=== PATIENT | female | born 1975 | race Caucasian/White ===

== ENCOUNTER → 2017-12-11 | Outpatient (CLI) | payer BC ==
--- NOTE | 2017-12-11 08:41 | US ---
EXAMINATION TYPE: US abdomen complete DATE OF EXAM: 12/11/2017 COMPARISON: NONE CLINICAL HISTORY: R74.8 ABN LEVELS OF OTHER SERUM ENZYMES. Patient has RA, and has been on Humira for years. EXAM MEASUREMENTS: Liver Length: 17.9 cm Gallbladder Wall: 0.2 cm CBD: 0.3 cm Spleen: 10.0 cm Right Kidney: 10.1 x 5.2 x 4.7 cm Left Kidney: 11.2 x 4.5 x 4.2 cm Pancreas: Obscured by bowel gas Liver: Partially Obscured by overlying bowel gas . However the visualized hepatic echotexture displ ays hyperechoic echogenicity, most commonly related to hepatic steatosis and limiting evaluation for hepatic masses. Gallbladder: Filled with echogenic, mobile gallstones. Evidence for sonographic Hylton's sign: No CBD: wnl Spleen: wnl Right Kidney: wnl Left Kidney: wnl Upper IVC: wnl Abd Aorta: wnl Sub optimal exam overall due to large patient body habitus and large amounts of bowel gas. The liver is diffusely hyperechoic. The intrahepatic portion of the IVC and proximal abdominal aorta are within normal limits. Common bile duct is unremarkable. Pancreas is obscured. The spleen is unre markable. Kidneys are symmetric and free of hydronephrosis. No renal lesions are seen. IMPRESSION: 1. Cholelithiasis without sonographic evidence of acute cholecystitis. 2. Findings most commonly related to hepatic steatosis.
== END | disposition home or self-care (01) ==
LOC: RADUSWWP 07:06
PROVIDERS: ATTEND Family Medicine
DX: K80.20 Calculus of gallbladder without cholecystitis without obstruction (principal)
CPT/HCPCS: 76700

== ENCOUNTER 2018-05-10 11:48 | Day surgery (SDC) | payer BC ==
[2018-05-07 14:13] VITALS: BMI 50.8
--- NOTE | 2018-05-10 05:28 | P.GSHP ---
History of Present Illness H&P Date: 05/10/18 CHIEF COMPLAINT: Cholecystitis HISTORY OF PRESENT ILLNESS: The patient is a 42-year-old female who presents with history of epigastric including right upper quadrant abdominal pain. She underwent diagnostic studies for her gallbladder. Separately her clinical picture was consistent with cholecystitis. Now she presents for surgical intervention. PAST MEDICAL HISTORY: Please see list PAST SURGICAL HISTORY: Please see list MEDICATIONS: Please see list ALLERGIES: Denies. SOCIAL HISTORY: No illicit drug use or recent tobacco use FAMILY HISTORY: Pertinent for gallbladder disease REVIEW OF ORGAN SYSTEMS: CONSTITUTIONAL: No reports of fevers or chills. HEENT: Denies any troubles with the vision or hearing. ENDOCRINE: No reports of hypothyroidism. No diabetes. RESPIRATORY: No recent pneumonias. CARDIOVASCULAR: Denies chest pain or palpitations GI: No blood in stools or constipation. MUSCULOSKELETAL: Has occasional joint pain including back pain. NEURO: No seizure disorders or headaches. No recent stroke. PSYCH: No depression or suicidal ideation. GENITOURINARY: No active blood in urine. No urinary hesitancy. HEMATOLOGIC: No personal or family history of DVTs or pulmonary emboli. SKIN: No skin cancer. PHYSICAL EXAM: VITAL SIGNS: Afebrile vital signs stable GENERAL: Well-developed pleasant in no acute distress. HEENT: No scleral icterus. Extraocular movements grossly intact. Moist buccal mucosa. NECK: Supple without lymphadenopathy. CHEST: Unlabored respirations. Equal bilateral excursions. CARDIOVASCULAR: Regular rate regular rhythm rhythm. Distal 2+ pulses. ABDOMEN: Soft, nondistended. Tender along the epigastrium and right upper quadrant. MUSCULOSKELETAL: No clubbing, cyanosis, or edema. NEURO: Cranial nerves II to XII within normal limits. No focal or lateralizing signs. PSYCH: Alert and oriented to person, place and time. SKIN: Well-perfused good skin turgor. ASSESSMENT: 1. Epigastric and right upper quadrant abdominal pain 2. Chronic cholecystitis 3. Symptomatic gallstones. PLAN: 1. Will need a robotic cholecystectomy possible open. Benefits and risks were described. 2. Heparin for DVT prophylaxis 5000 units. 3. Antibiotic prophylaxis. Past Medical History Past Medical History: Hypertension, Rheumatoid Arthritis (RA) History of Any Multi-Drug Resistant Organisms: None Reported Past Surgical History: Joint Replacement Additional Past Surgical History / Comment(s): carolin hip, deviated septum sx Past Anesthesia/Blood Transfusion Reactions: Postoperative Nausea & Vomiting ( PONV) Smoking Status: Never smoker - Past Family History Mother Family Medical History: No Reported History Medications and Allergies Home Medications Medication Instructions Recorded Confirmed Type Adalimumab [Humira Pen] 40 mg SQ Q14D 05/07/18 05/07/18 History Furosemide [Lasix] 20 mg PO DAILY 05/07/18 05/07/18 History Allergies Allergy/AdvReac Type Severity Reaction Status Date / Time No Known Allergies Allergy Verified 05/07/18 14:06
[~2018-05-10 11:48] MED LIST: ACETAMINOPHEN IV (For NPO) 1,000 MG in EMPTY BAG 1 BAG IVPB ONE; DEXAMETHASONE SOD PHOSPHATE 10 MG/ML 1 ML VIAL IV ONE; HEPARIN SODIUM,PORCINE 5,000 UNIT/ML 1 ML VIAL SQ ONE; HYDROmorphone 0.5 MG/0.5 ML SYRINGE IVP PRN; INDOCYANINE GREEN 25 MG VIAL IV STA; LACTATED RINGERS 1,000 ML IV SCH; MIDAZOLAM (PF) 2 MG/2 ML VIAL IV PRN; ONDANSETRON 4 MG/2 ML VIAL IVP ONE; SCOPOLAMINE 1.5MG/72HR PATCH TRANSDERM ONE
[2018-05-10] MEDS ORDERED: LIDOCAINE 1% 20 ML VIAL (10MG/ML) FOR IV START INTRADERMA ONE (12:43)
[2018-05-10 13:28] LABS: Basophils % (A) 1 %; Eosinophils # (A) 0.1 k/uL (0-0.7); Eosinophils % (A) 2 %; HCT 40.6 % (34.0-46.0); HGB 13.2 gm/dL (11.4-16.0); Lymphocytes % (A) 32 %; MCH 29.2 pg (25.0-35.0); MCHC 32.5 g/dL (31.0-37.0); MCV 89.9 fL (80.0-100.0); Mean Platelet Volume 8.2; Monocytes # (A) 0.6 k/uL (0-1.0); Monocytes % (A) 10 %; Neutrophils # (A) 3.4 k/uL (1.3-7.7); Neutrophils % (A) 54 %; Platelet Count 238 k/uL (150-450); RBC 4.51 m/uL (3.80-5.40); RDW 14.1 % (11.5-15.5); WBC 6.3 k/uL (3.8-10.6)
[2018-05-10 13:39] LABS: ALT 32 U/L (9-52); AST 30 U/L (14-36); Albumin 3.6 g/dL (3.5-5.0); Alkaline Phosphatase 47 U/L (38-126); Anion Gap 5 mmol/L; Blood Urea Nitrogen 18 mg/dL (7-17); Calcium 8.9 mg/dL (8.4-10.2); Carbon Dioxide 24 mmol/L (22-30); Chloride 112 mmol/L (98-107); Glucose 96 mg/dL (74-99); Potassium 4.6 mmol/L (3.5-5.1); Sodium 141 mmol/L (137-145); Total Bilirubin 1.1 mg/dL (0.2-1.3); Total Protein 6.8 g/dL (6.3-8.2)
[2018-05-10] MEDS ORDERED: GLYCOPYRROLATE 0.2 MG/ML 2 ML VIAL ONE (13:52)
[2018-05-10] MEDS ORDERED: KETOROLAC 30 MG/ML 1 ML VIAL ONE (13:52)
[2018-05-10] MEDS ORDERED: LIDOCAINE 1% INJ 10MG/ML (20 ML MDV) ONE (13:52)
[2018-05-10] MEDS ORDERED: NEOSTIGMINE 1 MG/ML 10 ML VIAL ONE (13:52)
[2018-05-10] MEDS ORDERED: PROPOFOL 10 MG/ML 20 ML VIAL IV ONE (13:52)
[2018-05-10] MEDS ORDERED: INDOCYANINE GREEN 25 MG VIAL IV ONE (13:52)
[2018-05-10] MEDS ORDERED: SUCCINYLCHOLINE CHLORIDE VIAL 200 MG/10 ML VIAL IV ONE (13:52)
[2018-05-10] MEDS ORDERED: fentaNYL (PF) 50 MCG/ML 2 ML AMP ONE (13:52)
[2018-05-10] MEDS ORDERED: MIDAZOLAM 2 MG/2 ML VIAL ONE (13:52)
[2018-05-10] MEDS ORDERED: ROCURONIUM BROMIDE 10 MG/ML 10 ML VIAL IV ONE (13:52)
[2018-05-10] MEDS ORDERED: ACETAMINOPHEN IV (For NPO) 1,000 MG/100 ML VIAL ONE (13:52)
[2018-05-10] MEDS ORDERED: BUPIVACAIN-EPI 0.25%-1:200,000 30 ML VIAL SQ ONE ×2 (14:29→14:56)
[2018-05-10] MEDS ORDERED: LACTATED RINGERS 1,000 ML IV ONE (15:45)
[2018-05-10 15:55] VITALS: TEMP 97.9
--- NOTE | 2018-05-10 16:00 | P.OP ---
Date of Procedure: 05/10/18 Description of Procedure: SURGEON: LUISANA KENYON MD PREOPERATIVE DIAGNOSES: 1. Right upper quadrant abdominal pain 2. Chronic cholecystitis 3. Morbid obesity due to excess calories, BMI 50.9 4. Rheumatoid arthritis 5. Hypertensive heart disease 6. Postop nausea or vomiting POSTOPERATIVE DIAGNOSES: 1. Right upper quadrant abdominal pain 2. Chronic cholecystitis 3. Morbid obesity due to excess calories, BMI 50.9 4. Rheumatoid arthritis 5. Hypertensive heart disease 6. Postop nausea or vomiting 7. Fatty liver disease OPERATION: Robotic-assisted da Juan M Xi laparoscopic cholecystectomy, multiport with FIREFLY ESTIMATED BLOOD LOSS: 5 mL. SPECIMENS REMOVED: Gallbladder. COMPLICATIONS: None. OPERATIVE FINDINGS: 1. Chronic cholecystitis INDICATIONS: The patient is a 42-year-old female who presents with cholelcystitis. Surgical intervention with a laparoscopic cholecystectomy was described at length including injury to the biliary tree, bleeding, infection, need for further surgery. Informed consent was obtained. Robotic assisted laparoscopic approach was described. Benefits and risks of the procedure including but not limited to bleeding, infection, injury to the biliary tree was described. Informed consent was obtained. DESCRIPTION OF PROCEDURE: Patient was brought to the operating room, placed in supine position. After general induction, the abdomen had been prepped and draped in standard sterile fashion. The robotic da Juan M XI system was primed. After a timeout protocol was performed, the patient had been prepped and draped in standard sterile fashion. The patient was injected with indocyanine green. A 5 mm 0 degrees laparoscopic trocar entry was performed along the left upper quadrant. The abdomen insufflated to 15 mmHg pressure which was tolerated well. Diagnostic laparoscopy demonstrated no injury to bowel viscera or mesentery. The liver surface was unremarkable. Next, two 8 mm robotic ports were placed along the right upper abdomen. The camera 8-mm port was maintained along the epigastrium. Another 8 mm port was placed along the left upper abdominal wall after exchanging the 5 mm port. Please note that the ports were placed at least 10 to 15 cm away from the target anatomy of the gallbladder. The robot was docked along the left lateral abdomen. The patient was repositioned in reverse Trendelenburg position. Using a grasper for arm 3, a grasper for arm 4, including hook cautery for arm 1 , the robotic system was docked and primed as described. Instruments were interchanged by the malt specifications control assistant including hook cautery, Bovie cautery and clip appliers. I had sat at the console. The gallbladder fundus was retracted over the dome of the liver. Initial attention was brought to the infundibulum which was gently retracted in the inferior lateral approach. Using a grasper, the cystic duct including the cystic artery was carefully skeletonized. FIREFLY was used to identify the cystic artery and cystic structures. Large PLASTIC clips were used throughout the entire case. Using a clip lottery office manager 2 clips were placed proximally, and 1 clip was placed distally along the cystic duct and then cauterized with the cautery. Again care was taken to avoid any injury to the biliary tree as the common bile duct was clearly visualized during this portion of dissection. Next, the cystic artery was similarly clipped and cauterized. Electro-Bovie cautery was used to remove the gallbladder from the hepatic fossa. Hemostasis was checked and found to be adequate. The robot was undocked. I re-scrubbed into the case. Using a 10 mm Endo Catch bag via the left upper quadrant incision, the specimen was removed from the abdominal cavity. All pneumoperitoneum instruments were evacuated from the abdominal cavity. The incisions were reapproximated using 4-0 Monocryl in an interrupted subcuticular fashion. Fascial defects were less than 8 mm in size. Please note along the trocar sites, local anesthetic was placed as a field block prior to insertion of all instruments. Liquid glue was applied to the skin. At the end of the procedure needle, sponge, and instrument count had been verified correct by the assistant professor surgical technology. The patient was transferred to postanesthesia care unit in stable condition. Intraoperative films were shared with the patient's family who were very pleased with the level of care. Console time 20 minutes Plan - Discharge Summary Discharge Rx Participant: Yes New Discharge Prescriptions: New HYDROcodone/APAP 5-325MG [[place] 5-325] 1 tab PO Q4HR PRN 3 Days #18 tab PRN Reason: Pain Ibuprofen [Motrin] 600 mg PO Q8HR PRN #30 tab PRN Reason: Pain No Action Furosemide [Lasix] 20 mg PO DAILY Adalimumab [Humira Pen] 40 mg SQ Q14D Discharge Medication List Adalimumab [Humira Pen] 40 mg SQ Q14D 05/07/18 [History] Furosemide [Lasix] 20 mg PO DAILY 05/07/18 [History] HYDROcodone/APAP 5-325MG [[place] 5-325] 1 tab PO Q4HR PRN 3 Days #18 tab [Rx] Ibuprofen [Motrin] 600 mg PO Q8HR PRN #30 tab 05/10/18 [Rx] Follow up Appointment(s)/Referral(s): Luisana Kenyon MD [STAFF PHYSICIAN] - 05/22/18 Patient Instructions/Handouts: Laparoscopic Cholecystectomy (IP), Low Fat Diet (DC) Activity/Diet/Wound Care/Special Instructions: No lifting over 4 pounds in 2 weeks. May shower. No baths or soaks. Low-fat diet over the weekend. Discharge Disposition: HOME SELF-CARE
[2018-05-10 16:03] VITALS: RESP 16
[2018-05-10 17:39] VITALS: BP 117/76; PULSE 58
== END 2018-05-10 17:54 | disposition home or self-care (01) ==
LOC: OR 11:48
PROVIDERS: ATTEND Surgery Plastic and Reconstructive Surgery
DX: K80.10 Calculus of gallbladder with chronic cholecystitis without obstruction (principal); E66.01 Morbid (severe) obesity due to excess calories; Z68.43 Body mass index [BMI] 50.0-59.9, adult; M06.9 Rheumatoid arthritis, unspecified; I11.9 Hypertensive heart disease without heart failure; K76.9 Liver disease, unspecified; I10 Essential (primary) hypertension; Z79.899 Other long term (current) drug therapy
CPT/HCPCS: 47562; S2900; 80053; 81025; 85025; 88304

== ENCOUNTER → 2018-09-12 | Outpatient (CLI) | payer BC ==
--- NOTE | 2018-09-12 18:42 | US ---
EXAMINATION TYPE: US venous doppler duplex LE RT DATE OF EXAM: 09/12/2018 3:49 PM COMPARISON: NONE CLINICAL HISTORY: 43-year-old female M79.661 pain in R leg,. Edema and pain right leg for 3 weeks SIDE PERFORMED: right TECHNIQUE: The lower extremity deep venous system is examined utilizing real time linear array sonog thuy with graded compression, doppler sonography and color-flow sonography. FINDINGS: VESSELS IMAGED: External Iliac Vein (EIV) Common Femoral Vein Deep Femoral Vein Greater Saphenous Vein * Femoral Vein Popliteal Vein Small Saphenous Vein * Proximal Calf Veins (* superficial vessels) Multimedia Programmer notes:Technical limitations due to patient's body habitus Right Leg: No evidence of DVT as visualized, unable to visualize lower femoral vein for compression IMPRESSION: Suboptimal visualization of the lower femoral vein for assessment of DVT. No evidence of DVT elsewher e within the right lower extremity imaged from the groin to the lower knee.
== END | disposition home or self-care (01) ==
LOC: RADUSWWP 15:13
PROVIDERS: ATTEND Family Medicine
DX: M79.661 Pain in right lower leg (principal)

== ENCOUNTER 2020-02-13 07:33 | Day surgery (SDC) | payer BC ==
[2020-02-11 15:38] VITALS: BMI 56.3
[~2020-02-13 07:33] MED LIST changes: -ACETAMINOPHEN IV (For NPO) 1,000 MG in EMPTY BAG 1 BAG IVPB ONE; -DEXAMETHASONE SOD PHOSPHATE 10 MG/ML 1 ML VIAL IV ONE; -HEPARIN SODIUM,PORCINE 5,000 UNIT/ML 1 ML VIAL SQ ONE; -HYDROmorphone 0.5 MG/0.5 ML SYRINGE IVP PRN; -INDOCYANINE GREEN 25 MG VIAL IV STA; +LIDOCAINE 1% (10MG/ML) FOR IV START INTRADERMA PRN; -MIDAZOLAM (PF) 2 MG/2 ML VIAL IV PRN; -ONDANSETRON 4 MG/2 ML VIAL IVP ONE; -SCOPOLAMINE 1.5MG/72HR PATCH TRANSDERM ONE
[2020-02-13 08:07] VITALS: TEMP 99.4
[2020-02-13] MEDS ORDERED: LIDOCAINE 1% INJ 10MG/ML (20 ML MDV) ONE (08:29)
[2020-02-13] MEDS ORDERED: PROPOFOL 10 MG/ML 20 ML VIAL IV ONE (08:29)
--- NOTE | 2020-02-13 08:42 | P.PCN ---
Date of Procedure: 02/13/20 Procedure(s) Performed: BRIEF HISTORY: Patient is a 44-year-old, pleasant, white female scheduled for an upper endoscopy for evaluation of globus sensation in her throat area for the last several months duration. She was started on omeprazole 20 mg daily and symptoms are gradually improving. He scheduled for an upper endoscopy to evaluate for GERD. PROCEDURE PERFORMED: Esophagogastroduodenoscopy with biopsy. PREOPERATIVE DIAGNOSIS: Globus pharyngeus. IV sedation per anesthesia. PROCEDURE: After informed consent was obtained, the patient was brought into the endoscopy unit. IV sedation was administered by Anesthesia under continuous monitoring. Initially the Olympus GIF-140 video endoscope was inserted into the mouth. Esophagus intubated without any difficulty. It was gradually advanced into the stomach and duodenum and carefully examined. The bulb and the second part of the duodenum appeared normal. The scope at this time was withdrawn to the stomach, adequately insufflated with air, and upon careful examination, mucosa of the antrum had mild gastritis and biopsies were done from this area. The body, cardia and the fundus appeared normal. The scope was then withdrawn into the esophagus. The GE junction was located at 39 cm from the incisors. The esophagus appeared normal. There were no erosions or ulcerations seen, biopsies were done from the distal esophagus and the patient tolerated the procedure well. IMPRESSION: 1. Normal-appearing esophagus with no evidence of esophagitis or Luis's esophagus. 2. Mild antral gastritis. RECOMMENDATIONS: The findings of this examination were discussed with the patient as well as her family. She was advised to follow with the biopsy results. She will continue with omeprazole 20 mg daily and follow antireflux measures.
[2020-02-13 08:51] VITALS: RESP 16
[2020-02-13 09:02] VITALS: BP 137/83; PULSE 74
== END 2020-02-13 09:32 | disposition home or self-care (01) ==
LOC: ORWHC2ENDO 07:33
PROVIDERS: ATTEND Internal Medicine Gastroenterology
DX: K29.50 Unspecified chronic gastritis without bleeding (principal); K21.0 Gastro-esophageal reflux disease with esophagitis; I10 Essential (primary) hypertension; E66.01 Morbid (severe) obesity due to excess calories; M06.9 Rheumatoid arthritis, unspecified; G47.33 Obstructive sleep apnea (adult) (pediatric); Z79.899 Other long term (current) drug therapy; Z96.643 Presence of artificial hip joint, bilateral; Z98.890 Other specified postprocedural states; Z68.43 Body mass index [BMI] 50.0-59.9, adult
CPT/HCPCS: 81025; 88305; 43239; J2001; J2704

== ENCOUNTER → 2020-09-07 | Outpatient (CLI) | payer BC ==
[2020-09-07 20:57] LABS: Basophils # (A) 0.03 X 10*3/uL (0.00-0.10); Basophils % (A) 0.4 %; Eosinophils # (A) 0.05 X 10*3/uL (0.04-0.35); Eosinophils % (A) 0.7 %; HCT 40.4 % (37.2-46.3); HGB 12.9 g/dL (12.0-15.0); Lymphocytes # (A) 1.97 X 10*3/uL (0.90-5.00); Lymphocytes % (A) 28.6 %; MCH 29.5 pg (27.0-32.0); MCHC 31.9 g/dL (32.0-37.0); MCV 92.2 fL (80.0-97.0); Mean Platelet Volume 10.8 fL (9.5-12.2); Monocytes # (A) 0.77 X 10*3/uL (0.20-1.00); Monocytes % (A) 11.2 %; Neutrophils # (A) 4.05 X 10*3/uL (1.80-7.70); Neutrophils % (A) 58.7 %; Platelet Count 304 X 10*3/uL (140-440); RBC 4.38 X 10*6/uL (4.10-5.20); RDW 14.1 % (11.5-14.5)
[2020-09-07 22:55] LABS: Hemoglobin A1C 5.5 % (4.0-6.0)
[2020-09-08 19:21] LABS: African American GFR (CKD) 89.5 (60.0-200.0); Albumin 4.5 g/dL (3.80-4.90); Albumin/Globulin Ratio 1.8 (1.60-3.17); Anion Gap 13.7 mmol/L (4.00-12.00); BUN/Creat Ratio 21.11 Ratio (12.00-20.00); Calcium 9.6 mg/dL (8.7-10.3); Carbon Dioxide 21.3 mmol/L (21.6-31.8); Chol/HDL Ratio 3.71; Globulin 2.5 g/dL (1.6-3.3); LDL Cholesterol,Calculated 122.6 mg/dL (0.0-131.0); Non-African American GFR(CKD) 77.2 (60.0-200.0); Potassium 4.8 mmol/L (3.5-5.5); Total Bilirubin 0.8 mg/dL (0.3-1.2); VLDL Calculation 26.4 mg/dL (5.00-40.00)
== END | disposition home or self-care (01) ==
LOC: LABWHC1 12:58
PROVIDERS: ATTEND Internal Medicine Rheumatology
DX: Z00.00 Encounter for general adult medical examination without abnormal findings (principal); M06.9 Rheumatoid arthritis, unspecified
CPT/HCPCS: 36415; 80053; 80061; 82306; 83036; 84443; 85025

== ENCOUNTER → 2021-10-12 | Outpatient (CLI) | payer BC ==
--- NOTE | 2021-10-12 21:30 | CT ---
EXAMINATION TYPE: CT sinus wo con DATE OF EXAM: 10/12/2021 COMPARISON: CT dated the 2014 HISTORY: Postnasal drip CT DLP: 679.3 mGycm. Automated Exposure Control for Dose Reduction was Utilized. TECHNIQUE: CT scan of the sinuses is performed without contrast, axial images are obtained, coronal r eformatted images are also reviewed. FINDINGS: Minimal deviation of the bony nasal septum convex to the right side. Paradoxical middle turbinates. P neumatization of the vertical lamella, seen bilaterally. Unremarkable inferior turbinates. Minimal mu cosal thickening of the inferior aspect of the right nasal fossa. Patent infundibulum bilaterally. Mild mucosal thickening of the ostiomeatal complexes. Clear maxillar y sinuses, frontal sinus and ethmoid air cells. 14 mm polyp/retention cyst of the right sphenoid sinu s compartment. Patent sphenoethmoidal recesses. Clear mastoid air cells. Slightly enlarged palatine tonsils, please correlate clinically. Grossly unr emarkable visualized portion of the brain and orbits. IMPRESSION: Right sphenoid sinus compartment polyp/retention cyst, otherwise clear paranasal sinuses. Other findi ngs as described above.
== END | disposition home or self-care (01) ==
LOC: RADCTMAIN 16:14
PROVIDERS: ATTEND Otolaryngology Facial Plastic Surgery
DX: J34.1 Cyst and mucocele of nose and nasal sinus (principal)
CPT/HCPCS: 70486

== ENCOUNTER → 2022-01-25 | Outpatient (CLI) | payer BC ==
[2022-01-25 18:39] LABS: Basophils # (A) 0.03 X 10*3/uL (0.00-0.10); Basophils % (A) 0.4 %; Eosinophils # (A) 0.05 X 10*3/uL (0.04-0.35); Eosinophils % (A) 0.6 %; HCT 41.1 % (37.2-46.3); HGB 13.2 g/dL (12.0-15.0); Immature Grans, Automated 0.2 %; Lymphocytes # (A) 2.25 X 10*3/uL (0.90-5.00); Lymphocytes % (A) 27.4 %; MCH 28.9 pg (27.0-32.0); MCHC 32.1 g/dL (32.0-37.0); MCV 89.9 fL (80.0-97.0); Mean Platelet Volume 10.8 fL (9.5-12.2); Monocytes # (A) 0.74 X 10*3/uL (0.20-1.00); NRBC Per 100 WBC 0 /100 WBCS (0.0-0.0); Neutrophils # (A) 5.12 X 10*3/uL (1.80-7.70); Neutrophils % (A) 62.4 %; Platelet Count 311 X 10*3/uL (140-440); RBC 4.57 X 10*6/uL (4.10-5.20); RDW 14.2 % (11.5-14.5); WBC 8.21 X 10*3/uL (4.50-10.00)
[2022-01-26 01:12] LABS: ALT 21 U/L (8-44); AST 23 U/L (13-35); African American GFR (CKD) 98.2 (60.0-200.0); Albumin 4.3 g/dL (3.8-4.9); Albumin/Globulin Ratio 1.51 (1.60-3.17); Alkaline Phosphatase 73 U/L (41-126); BUN/Creat Ratio 16.53 Ratio (12.00-20.00); Blood Urea Nitrogen 13.7 mg/dL (9.0-27.0); Calcium 9.3 mg/dL (8.7-10.3); Carbon Dioxide 24.4 mmol/L (20.0-27.5); Chloride 104 mmol/L (96-109); Chol/HDL Ratio 4.53 Ratio; Globulin 2.8 g/dL (1.6-3.3); Glucose 113 mg/dL (70-110); LDL Cholesterol,Calculated 117.8 mg/dL (0.0-131.0); Non-African American GFR(CKD) 84.7 (60.0-200.0); Sodium 143 mmol/L (135-145); Total Protein 7.1 g/dL (6.2-8.2)
[2022-01-26 04:09] LABS: Anti-Smith Ab Interp NEGATIVE (NEGATIVE); Scleroderma SC-70 Ab <0.2 AI
[2022-01-26 10:34] LABS: Angiotensin-1 Converting Enz. 38 U/L (8-52)
[2022-01-26 13:32] LABS: C-ANCA <1:20 Titer (<1:20)
== END | disposition home or self-care (01) ==
LOC: LABWHC1 13:44
PROVIDERS: ATTEND Internal Medicine Rheumatology
DX: Z00.00 Encounter for general adult medical examination without abnormal findings (principal); M06.9 Rheumatoid arthritis, unspecified; R19.8 Other specified symptoms and signs involving the digestive system and abdomen
CPT/HCPCS: 36415; 80053; 80061; 82164; 83036; 83516; 84443; 85025; 86038; 86140; 86235; 86255

== ENCOUNTER → 2022-01-27 | Outpatient (CLI) | payer BC ==
--- NOTE | 2022-01-27 22:18 | CT ---
EXAMINATION TYPE: CT soft tissue neck w con DATE OF EXAM: 01/27/2022 HISTORY: throat pain COMPARISON: NONE CT DLP: 1306 mGycm. Automated Exposure Control for Dose Reduction was Utilized. TECHNIQUE: CT scan of the neck is performed with IV Contrast, patient injected with 100 mL of Isovue 300, axial images are obtained, coronal and sagittal reformatted images are reviewed. FINDINGS: Airway: No gross abnormality seen. Parotid/submandibular glands: No gross abnormality seen. Carotid/Vascular Structures: Portal opacification of arterial system with most dense contrast in the venous system. No significant plaque or stenosis at carotid bulb level is appreciated. Some tortuous course to the bilateral internal carotid arteries is incidentally noted Osseous Structures: Mild to moderate disc space narrowing and mild spurring C6-C7 level . Slight scol iotic curvature on coronal images. Other: No suspicious greater than 1 cm neck adenopathy. Some prominent but subcentimeter lymph nodes are identified in the neck bilaterally. Incidental 6 mm mucous retention cyst or polyp in the right sphenoid sinus axial image 16. IMPRESSION: No suspicious mass or adenopathy. Airway remains patent.
== END | disposition home or self-care (01) ==
LOC: RADCTMAIN 15:16
PROVIDERS: ATTEND Otolaryngology Facial Plastic Surgery
DX: R07.0 Pain in throat (principal)
CPT/HCPCS: 70491; Q9967

== ENCOUNTER → 2023-11-06 | Outpatient (CLI) | payer BC ==
[2023-11-06 19:11] LABS: Basophils # (A) 0.05 X 10*3/uL (0.00-0.10); Basophils % (A) 0.6 %; Eosinophils % (A) 1.1 %; HCT 43.1 % (37.2-46.3); HGB 13.4 g/dL (12.0-15.0); Lymphocytes # (A) 2.87 X 10*3/uL (0.90-5.00); Lymphocytes % (A) 32.7 %; MCH 28.8 pg (27.0-32.0); MCHC 31.1 g/dL (32.0-37.0); MCV 92.5 FL (80.0-97.0); Mean Platelet Volume 10.6 FL (9.5-12.2); Monocytes # (A) 0.83 X 10*3/uL (0.20-1.00); Monocytes % (A) 9.5 %; NRBC Per 100 WBC 0 X 10*3/uL (0.00-0.01); Neutrophils # (A) 4.88 X 10*3/uL (1.80-7.70); Neutrophils % (A) 55.6 %; Platelet Count 285 X 10*3/uL (140-440); RBC 4.66 X 10*6/uL (4.10-5.20); RDW 14.3 % (11.5-14.5); WBC 8.77 X 10*3/uL (4.50-10.00)
[2023-11-06 19:23] LABS: ALT 63 U/L (8-44); AST 57 U/L (13-35); Albumin 4.2 g/dL (3.8-4.9); Albumin/Globulin Ratio 1.56 Ratio (1.60-3.17); Alkaline Phosphatase 74 U/L (41-126); BUN/Creat Ratio 17.75 Ratio (12.00-20.00); Blood Urea Nitrogen 14.2 mg/dL (9.0-27.0); Calcium 9.6 mg/dL (8.7-10.3); Chloride 107 mmol/L (96-109); Chol/HDL Ratio 4.62 Ratio; Erythrocyte Sedimentation Rate 16 mm/Hr (0-20); Globulin 2.7 g/dL (1.6-3.3); Glucose 97 mg/dL (70-110); LDL Cholesterol,Calculated 127.2 mg/dL (0.0-131.0); Potassium 4.5 mmol/L (3.5-5.5); Sodium 144 mmol/L (135-145); Total Bilirubin 0.9 mg/dL (0.3-1.2); Total Protein 6.9 g/dL (6.2-8.2)
== END | disposition home or self-care (01) ==
LOC: LABWHC1 12:35
PROVIDERS: ATTEND Internal Medicine Rheumatology
DX: Z00.00 Encounter for general adult medical examination without abnormal findings (principal); M06.9 Rheumatoid arthritis, unspecified
CPT/HCPCS: 36415; 80053; 80061; 83036; 83525; 84443; 85025; 85652; 86140